=== PATIENT | male | born 1955 | race Asian ===

== ENCOUNTER → 2017-01-17 | Outpatient (CLI) | payer OTHER | END | disposition home or self-care (01) | LOC: RADPV 11:32 | PROVIDERS: ATTEND Legal Medicine | DX: M20.12 Hallux valgus (acquired), left foot (principal); M10.9 Gout, unspecified ==

== ENCOUNTER → 2022-07-12 | Outpatient (CLI) | payer MEDICARE, OTHER | END | disposition home or self-care (01) | LOC: RADPV 09:52 | PROVIDERS: ATTEND Legal Medicine | DX: N17.9 Acute kidney failure, unspecified (principal) | CPT/HCPCS: 76770 ==